=== PATIENT | female | born 2000 | race Two or more races ===

== ENCOUNTER 2022-04-16 09:04 | Outpatient (REF) | payer BC, SELFPAY ==
--- NOTE | ~2022-04-16 | XR_ITS ---
EXAMINATION: X-RAY BILATERAL KNEES CLINICAL INFORMATION: Pain. COMPARISON: None. TECHNIQUE: 3 views of each knee. 1 AP standing view of both knees. FINDINGS: No acute fractures. The right patella is slightly asymmetrically elevated when compared to the left. No significant degenerative changes. No chondrocalcinosis. No erosions. Small bilateral joint effusions. XR/XR knee LT 3V IMPRESSION: 1. No acute fractures. 2. Small bilateral joint effusions. 3. Question right-sided high riding patella/patella mariama.
--- NOTE | ~2022-04-16 | XR_ITS ---
EXAMINATION: X-RAY BILATERAL KNEES CLINICAL INFORMATION: Pain. COMPARISON: None. TECHNIQUE: 3 views of each knee. 1 AP standing view of both knees. FINDINGS: No acute fractures. The right patella is slightly asymmetrically elevated when compared to the left. No significant degenerative changes. No chondrocalcinosis. No erosions. Small bilateral joint effusions. XR/XR knee standing BI IMPRESSION: 1. No acute fractures. 2. Small bilateral joint effusions. 3. Question right-sided high riding patella/patella mariama.
--- NOTE | ~2022-04-16 | XR_ITS ---
EXAMINATION: X-RAY BILATERAL KNEES CLINICAL INFORMATION: Pain. COMPARISON: None. TECHNIQUE: 3 views of each knee. 1 AP standing view of both knees. FINDINGS: No acute fractures. The right patella is slightly asymmetrically elevated when compared to the left. No significant degenerative changes. No chondrocalcinosis. No erosions. Small bilateral joint effusions. XR/XR knee RT 3V IMPRESSION: 1. No acute fractures. 2. Small bilateral joint effusions. 3. Question right-sided high riding patella/patella mariama.
[2022-04-16 10:06] LABS: MANUAL DIFF FLAG NO
[2022-04-16 10:35] LABS: Creatinine Urine 42.71 mg/dL; Total Protein Urine Random < 7 mg/dL (<12)
[2022-04-16 11:04] LABS: Appearance Urine Clear; Color Urine Yellow; Glucose Urine UA Negative (Negative); Leukocyte Esterase Urine Small (1+) (Negative); Nitrite Urine Negative (Negative); PH 6.5 (5.0-9.0); Specific Gravity - Urine <= 1.005 (1.005-1.025); UMIC TRIGGER UA YES; Urine Blood Negative (Negative); Urine Ketones Negative (Negative); Urine Protein Negative (Neg-Trace)
[2022-04-16 11:18] LABS: Bacteria Urine None Seen (None Seen); Hyaline Casts Urine 0-2 /LPF (0-2); RBC Urine 0-2 /HPF (0-2); WBC Urine 0-5 /HPF (0-5)
[2022-04-16 11:29] LABS: Basophils Absolute Auto 0.1 X10*3/uL (0.0-0.2); Basophils Percent Auto 0.6 % (0-2); Eosinophils Absolute Auto 0.1 X10*3/uL (0.0-0.4); Eosinophils Percent Auto 1.3 % (0-4); Hematocrit 38.3 % (37.0-47.0); Hemoglobin 12.1 g/dl (12.0-16.0); Imm Gran Abs Auto 0.06 X10*3/uL (0.00-0.03); Imm Gran Pct Auto 0.6 % (0.0-0.4); Lymphocytes Absolute Auto 1.5 X10*3/uL (1.2-4.9); Lymphocytes Percent Auto 13.5 % (20-40); Mean Corpuscular HGB Conc 31.6 g/dl (31.0-35.0); Mean Corpuscular Hemoglobin 26.7 pg (27.0-33.0); Mean Corpuscular Volume 84.5 fL (80.0-98.0); Mean Platelet Volume 11.6 fL (9.4-12.3); Monocytes Absolute Auto 0.9 X10*3/uL (0.1-1.2); Neutrophils Absolute Auto 8.3 x10*3/uL (2.0-8.3); Platelet Count 371 X10*3/uL (160-400); Red Blood Count 4.53 X10*6/uL (4.20-5.50); White Blood Count 10.9 X10*3/uL (4.8-10.8)
[2022-04-16 12:33] LABS: Erythrocyte Sedimentation Rate 27 MM/HR (0-20)
[2022-04-16 12:49] LABS: Alanine Aminotransferase 11 U/L (0-31); Albumin Level 4.2 g/dL (3.5-5.0); Alkaline Phosphatase 82 U/L (39-117); Anion Gap 15 (12-20); Aspartate Amino Transferase 16 U/L (5-31); Bilirubin Total 0.4 mg/dL (0.0-1.0); Blood Urea Nitrogen 8 mg/dL (9-16); C Reactive Protein 1.23 mg/dL (< or = 0.50); Calcium 9.4 mg/dL (8.4-10.2); Carbon Dioxide 22 mmol/L (22-29); Chloride 104 mmol/L (96-108); Estimated Glomerular Filt Rate > 60; Glucose Random 75 mg/dL (60-115); Potassium 4.5 mmol/L (3.3-5.1); Sodium 136 mmol/L (135-145); Total Protein 7.1 g/dL (6.5-8.0)
[2022-04-16 13:01] LABS: TSH reflex Free T4 1.11 uIU/mL (0.32-4.0)
[2022-04-16 13:11] LABS: Rheumatoid Factor < 15.0 IU/mL (<15.0)
[2022-04-18 04:36] LABS: HBc Num1 0.16 S/CO (0.00-0.79); HBsAGNum1 0.18 S/CO (0.00-0.99); Hepatitis B Core Antibody Nonreactive (Nonreactive); Hepatitis B Surface Antigen Negative (Negative); ~HepC Num1 0.23 S/CO (0.00-0.79); ~Hepatitis C Antibody Nonreactive (Nonreactive)
[2022-04-18 05:13] LABS: HBS Num2 8.81 mIU/mL (0-7.99); HBS Num3 8.24 mIU/mL (0-7.99); ~Hepatitis B Surface Antibody GRAYZONE (Nonreactive)
[2022-04-18 11:11] LABS: Complement C3 149 mg/dL (83-193)
[2022-04-18 15:21] LABS: Anti DNA DS Antibody 2 IU/mL; Antibody to SS-A Antigen <1.0 NEG AI (<1.0 NEG); Antibody to SS-B Antigen <1.0 NEG AI (<1.0 NEG); SM/Ribonucleoprotein Ab <1.0 NEG AI (<1.0 NEG); Scleroderma 70 Antibody <1.0 NEG AI (<1.0 NEG); Smith Protein <1.0 NEG AI (<1.0 NEG)
[2022-04-18 17:11] LABS: Thyroglobulin Antibodies <1 IU/mL (< or = 1)
[2022-04-18 17:32] LABS: Cyclic Citrullinated Peptide <16 UNITS
[2022-04-18 21:32] LABS: Thyroid Peroxidase Antibodies 2 IU/mL (<9)
[2022-04-19 05:43] LABS: Cardiolipin IgG Ab <2.0 GPL-U/mL; Cardiolipin IgM Ab <2.0 MPL-U/mL
[2022-04-19 20:16] LABS: Anti-Centromere B Antibodies <1.0 NEG AI (<1.0 NEG)
[2022-04-20 04:07] LABS: Hepatitis A Antibody IgM 0.41 Index (0-0.79); ~Hepatitis A Antibody IgM Nonreactive (Nonreactive)
[2022-04-21 13:52] LABS: Beta-2 Glycoprotein IgA <2.0 U/mL (<20.0); Beta-2 Glycoprotein IgG <2.0 U/mL (<20.0); Beta-2 Glycoprotein IgM <2.0 U/mL (<20.0)
[2022-04-21 14:41] LABS: Anti Nuclear Antibody Pattern Nuclear, Homogeneous; Anti Nuclear Antibody Screen POSITIVE (NEGATIVE)
[2022-04-22 06:37] LABS: Hexagonal Phase Neutralization Negative (Negative); PTT (LAC) Screen 49 sec (<=40)
== END 2022-04-16 09:05 | disposition home or self-care (01) ==
LOC: HO.LAB 09:04
PROVIDERS: Visit Provider Student in an Organized Health Care Education/Training Program
DX: Z11.59 Encounter for screening for other viral diseases (principal); R76.8 Other specified abnormal immunological findings in serum; M22.2X1 Patellofemoral disorders, right knee; M22.2X2 Patellofemoral disorders, left knee
CPT/HCPCS: 73562; 73564; 73565; 80053; 81001; 82550; 84156; 84443; 85025; 85597; 85613; 85652; 85730; 86038; 86039; 86140; 86146; 86147; 86160; 86200; 86225; 86235; 86376; 86431; 86704; 86706; 86709; 86800; 86803; 87340

== ENCOUNTER 2022-06-07 12:06 | Outpatient (REF) | payer BC, SELFPAY ==
--- NOTE | ~2022-06-07 | MR_ITS ---
EXAMINATION: MR KNEE WITHOUT CONTRAST, LEFT CLINICAL INFORMATION: Left knee pain and swelling following a fall and twisting injury. Patellofemoral disorders. COMPARISON: Left knee radiographs dated 04/16/2022. TECHNIQUE: MRI of the knee without contrast was performed using routine sequences on a high-field scanner. FINDINGS: MENISCI: Medial Meniscus: Intact. Lateral Meniscus: Intact. LIGAMENTS: Cruciate: Intact. Collateral: Intact. EXTENSOR MECHANISM: Intact quadriceps and patellar tendons. TT-TG distance is elevated measuring 1.9 cm. Patella currently laterally subluxed. ARTICULAR CARTILAGE/BONE: Patellofemoral Compartment: Mild cortical flattening with marrow edema at the inferomedial aspect of the patella consistent with an impaction fracture. Marrow edema at the lateral aspect of the lateral femoral condyle consistent with an osseous contusion. Intact articular cartilage. Medial Compartment: Intact articular cartilage. Lateral Compartment: Intact articular cartilage. JOINT FLUID AND BURSAE: Trace joint effusion. MR/MR knee LT wo con IMPRESSION: 1. Findings consistent with a recent lateral patellar dislocation including an impaction fracture at the inferomedial aspect of the patella as well as an osseous contusion at the lateral aspect of the lateral femoral condyle. Trace joint effusion. 2. Elevated TT-TG distance with lateral subluxation of the patella. 3. No acute meniscal or ligamentous injury.
== END 2022-06-07 12:07 | disposition home or self-care (01) ==
LOC: HO.MRI 12:06
PROVIDERS: Visit Provider Student in an Organized Health Care Education/Training Program
DX: M22.2X2 Patellofemoral disorders, left knee (principal)
CPT/HCPCS: 73721

== ENCOUNTER 2022-07-01 12:18 | Outpatient (REF) | payer BC, SELFPAY ==
[2022-07-01 12:29] LABS: MANUAL DIFF FLAG NO
[2022-07-01 12:38] LABS: Basophils Absolute Auto 0.1 X10*3/uL (0.0-0.2); Basophils Percent Auto 0.4 % (0-2); Eosinophils Percent Auto 0.2 % (0-4); Hematocrit 38.6 % (37.0-47.0); Hemoglobin 12.3 g/dl (12.0-16.0); Imm Gran Abs Auto 0.11 X10*3/uL (0.00-0.03); Imm Gran Pct Auto 0.6 % (0.0-0.4); Lymphocytes Absolute Auto 1.1 X10*3/uL (1.2-4.9); Lymphocytes Percent Auto 6.4 % (20-40); Mean Corpuscular HGB Conc 31.9 g/dl (31.0-35.0); Mean Corpuscular Hemoglobin 26.4 pg (27.0-33.0); Mean Corpuscular Volume 82.8 fL (80.0-98.0); Monocytes Absolute Auto 0.5 X10*3/uL (0.1-1.2); Monocytes Percent Auto 2.9 % (2-11); Neutrophils Absolute Auto 15.4 x10*3/uL (2.0-8.3); Neutrophils Percent Auto 89.5 % (45-73); Platelet Count 389 X10*3/uL (160-400); Red Blood Count 4.66 X10*6/uL (4.20-5.50); Red Cell Distribution Width 13.2 % (11.0-16.0); White Blood Count 17.2 X10*3/uL (4.8-10.8)
[2022-07-01 13:10] LABS: Alanine Aminotransferase 11 U/L (0-31); Albumin Level 4.4 g/dL (3.5-5.0); Alkaline Phosphatase 94 U/L (39-117); Anion Gap 11 (12-20); Aspartate Amino Transferase 16 U/L (5-31); Bilirubin Total 0.3 mg/dL (0.0-1.0); Blood Urea Nitrogen 10 mg/dL (9-16); C Reactive Protein 0.96 mg/dL (< or = 0.50); Calcium 9.4 mg/dL (8.4-10.2); Carbon Dioxide 24 mmol/L (22-29); Chloride 106 mmol/L (96-108); Estimated Glomerular Filt Rate > 60; Glucose Random 93 mg/dL (60-115); Potassium 4.1 mmol/L (3.3-5.1); Sodium 137 mmol/L (135-145); Total Protein 7.2 g/dL (6.5-8.0)
[2022-07-01 13:26] LABS: Erythrocyte Sedimentation Rate 34 MM/HR (0-20)
== END 2022-07-01 12:19 | disposition home or self-care (01) ==
LOC: HO.LAB 12:18
PROVIDERS: Visit Provider Student in an Organized Health Care Education/Training Program
DX: R76.8 Other specified abnormal immunological findings in serum (principal)
CPT/HCPCS: 36415; 80053; 85025; 85652; 86140

== ENCOUNTER → 2022-07-04 12:37 | Outpatient (BNVA) | payer BC, SELFPAY | PROVIDERS: Visit Provider Physician Assistant | DX: Z13.89 Encounter for screening for other disorder (principal) ==

== ENCOUNTER → 2022-07-05 14:33 | Outpatient (BNVA) | payer BC, SELFPAY | PROVIDERS: Visit Provider Student in an Organized Health Care Education/Training Program | DX: Z13.89 Encounter for screening for other disorder (principal) ==

== ENCOUNTER 2023-01-09 14:21 | Outpatient (REF) | payer BC, SELFPAY ==
[2023-01-09 14:42] LABS: MANUAL DIFF FLAG NO
[2023-01-09 15:38] LABS: Basophils Absolute Auto 0.1 X10*3/uL (0.0-0.2); Basophils Percent Auto 0.7 % (0-2); Eosinophils Absolute Auto 0.2 X10*3/uL (0.0-0.4); Eosinophils Percent Auto 1.4 % (0-4); Hematocrit 38.3 % (37.0-47.0); Hemoglobin 11.9 g/dl (12.0-16.0); Imm Gran Pct Auto 0.7 % (0.0-0.4); Lymphocytes Absolute Auto 1.5 X10*3/uL (1.2-4.9); Lymphocytes Percent Auto 10.5 % (20-40); Mean Corpuscular HGB Conc 31.1 g/dl (31.0-35.0); Mean Corpuscular Hemoglobin 26.3 pg (27.0-33.0); Mean Corpuscular Volume 84.5 fL (80.0-98.0); Mean Platelet Volume 11.5 fL (9.4-12.3); Monocytes Percent Auto 6.8 % (2-11); Neutrophils Absolute Auto 11.8 x10*3/uL (2.0-8.3); Neutrophils Percent Auto 79.9 % (45-73); Platelet Count 422 X10*3/uL (160-400); Red Blood Count 4.53 X10*6/uL (4.20-5.50); Red Cell Distribution Width 12.5 % (11.0-16.0); White Blood Count 14.7 X10*3/uL (4.8-10.8)
[2023-01-09 16:11] LABS: Alanine Aminotransferase 25 U/L (0-31); Alkaline Phosphatase 88 U/L (39-117); Anion Gap 12 (12-20); Aspartate Amino Transferase 25 U/L (5-31); Bilirubin Total 0.3 mg/dL (0.0-1.0); Blood Urea Nitrogen 11 mg/dL (9-16); C Reactive Protein 1.41 mg/dL (< or = 0.50); Calcium 9.3 mg/dL (8.4-10.2); Carbon Dioxide 23 mmol/L (22-29); Chloride 104 mmol/L (96-108); Estimated Glomerular Filt Rate > 60; Glucose Random 101 mg/dL (60-115); Potassium 4.2 mmol/L (3.3-5.1); Sodium 135 mmol/L (135-145); Total Protein 7.3 g/dL (6.5-8.0)
[2023-01-09 16:34] LABS: Erythrocyte Sedimentation Rate 25 MM/HR (0-20)
== END 2023-01-09 14:22 | disposition home or self-care (01) ==
LOC: HO.LAB 14:21
PROVIDERS: PCP Pediatrics; Visit Provider Student in an Organized Health Care Education/Training Program
DX: R76.8 Other specified abnormal immunological findings in serum (principal)
CPT/HCPCS: 36415; 80053; 85025; 85652; 86140

== ENCOUNTER 2023-01-11 13:50 | Outpatient (AMB) | payer BC, SELFPAY ==
[2023-01-11 13:53] VITALS: BP 122/68; PULSE 120; TEMP 36.8; O2SAT 99; BMI 36.0
--- NOTE | 2023-01-11 13:53 | MHC.OFFVIS ---
Intake Vital Signs 01/11/23 13:53 Height 5 ft 3 in Weight 203 lb 7.787 oz BMI 36.0 BP 122/68 Blood Pressure Location Rt brachial Position Sitting Pulse 120 H Pulse Source Pulse Oximeter Temp 98.2 F Temp Source Skin Pulse Oximetry (%) 99 Intake Visit Reasons: FMS Intake Note: Pt seen today for FM follow up. C/o pain in left knee, lower knuckles in hands. 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 Accompanied by: Self / Same As Patient Allergies No Known Allergies Allergy (Verified 01/11/23 13:56) Medication List - Last Reconciled 01/11/23 by Constance Rudolph MD acetaminophen (Tylenol Extra Strength) 500 mg PO Q6H PRN aeuduse-gzttffxjvaytz-qkbdisgd 250-250-65 mg (Excedrin Migraine) 1 tab PO Q4-6H PRN bupropion HCl (Wellbutrin XL) 300 mg PO QAM dextroamphetamine-amphetamine 15 mg ER (Adderall XR) 15 mg PO DAILY diclofenac sodium 1% (Voltaren Arthritis Pain) 4 grams topical QID escitalopram oxalate (Lexapro) 20 mg PO DAILY ibuprofen 400 mg PO Q8H PRN levonorgestrel (Mirena) intrauterine ondansetron 8 mg PO Q8H PRN testosterone cypionate mg IM HPI HPI Comments History of Present Illness Details This is a 22-year-old female with hypermobility syndrome and fibromyalgia presents for follow-up. Patient has been working with physical therapy for her patellar instability for her knees which has been quite useful. Now she rarely has patellar dislocation. She also has been working with occupational therapy. She was prescribed rings for her fingers. She feels better overall in terms of pain but continues to have fatigue. She is currently in the process of trying to find a grinder machine knife setter to get evaluated for [facility] Medical History ADHD Anxiety Patellar instability of both knees Surgical History IUD (intrauterine device) in place Family History Mother Osteoarthritis Father Hypertension Social History Household Members: Other Household Members Other:: Currently living in dorm Housing: House Alcohol intake: never Patient Tobacco Use Status: Never used Tobacco e-Cigarette/Vaping Use: Never Used service: No Current occupational status: unemployed Current occupation: multimedia coordinator student/right hand Review of Systems Const Reports fatigue and Reports weakness ENT Reports dizziness and Reports dry mouth GI Reports nausea Details: no froth in urine Denies hematuria Musc Reports arthralgias and Reports stiffness Skin/Breast Reports unusual bruising Neuro Reports dizziness and Reports weakness Psych Reports abnormal sleep pattern and Reports anxiety Endo Reports fatigue and Reports polydipsia Physical Exam Vital Signs: Last Vital Signs Temp 98.2 F 01/11/23 13:53 Pulse 120 H 01/11/23 13:53 BP 122/68 01/11/23 13:53 Pulse Ox 99 01/11/23 13:53 BMI result Body Mass Index 36.0 Const General: cooperative, healthy appearing, comfortable and no acute distress Nutritional Appearance: obese Orientation/consciousness: patient oriented x3 HEENT Head: Yes normocephalic and Yes atraumatic Ears: hearing grossly normal bilaterally Mouth: moist mucous membranes Resp Effort & Inspection: normal respiratory effort and able to speak in complete sentences Auscultation: clear to auscultation bilaterally Cardio Other: Mild tachycardia Rate: regular rate Rhythm: regular rhythm Heart sounds: S1 normal heart sound present and S2 normal heart sound present GI Inspection: No distended Palpation (GI): Soft to palpation and nontender Skin Other: Acne on face Neuro General: patient oriented x3 Extrem Other: Hyperextensible thumbs and PIPs, hyperextensible elbows. No tender MCPs or PIPs today Multiple fibromyalgia tender points No knee swelling bilaterally. Hypermobile patella bilaterally Hyper extended knees. Normal nailfold capillaroscopy Assessment & Plan Assessment & Plan (1) GEORGIE positive: Code(s): R76.8 - Other specified abnormal immunological findings in serum Plan: This is a 22-year-old female with a past medical history of anxiety/depression/ADHD with positive GEORGIE 1-320 homogeneous. With negative sub serologies. Recent labs show mild leukocytosis and mildly elevated inflammatory markers but no convincing signs of autoimmune rheumatic disease. At this point my suspicion for autoimmune connective tissue disease is low. Re-evaluate in 6 months (2) Hypermobile joint syndrome of multiple sites: Code(s): M24.80 - Other specific joint derangements of unspecified joint, not elsewhere classified Plan: Has been working with physical therapy with some improvement. Currently in the process of trying to find a grinder machine knife setter (3) Patellar instability of both knees: Code(s): M25.361 - Other instability, right knee; M25.362 - Other instability, left knee Plan: Symptoms improved after physical therapy course Plan I spent 32 minutes reviewing patient's chart, evaluating patient, ordering diagnostic workup, counseling patient and documenting in the chart Coding Level of Care Code Est Pt Level 4 (54628) Diagnoses GEORGIE positive R76.8 Hypermobile joint syndrome of multiple sites M24.80 Patellar instability of both knees M25.361; M25.362
== END 2023-01-11 14:33 | disposition home or self-care (01) ==
PROVIDERS: PCP Pediatrics; Visit Provider Student in an Organized Health Care Education/Training Program
DX: R76.8 Other specified abnormal immunological findings in serum (principal); M24.80 Other specific joint derangements of unspecified joint, not elsewhere classified; M25.361 Other instability, right knee; M25.362 Other instability, left knee
CPT/HCPCS: 99214

== ENCOUNTER → 2023-01-11 13:50 | Outpatient (BNVA) | payer BC, SELFPAY | PROVIDERS: PCP Pediatrics; Visit Provider Student in an Organized Health Care Education/Training Program ==